=== PATIENT | male | born 1980 | race Caucasian/White ===

== ENCOUNTER 2016-12-16 20:58 | Observation (INO) | payer MEDICAID ==
[2016-12-16] MEDS ORDERED: ONDANSETRON 4 MG/2 ML VIAL ONE (21:12)
[2016-12-16] MEDS ORDERED: NS 1,000 ML IV ONE (21:15)
[2016-12-16] MEDS ORDERED: ONDANSETRON 4 MG/2 ML VIAL IVP ONE (21:15)
[2016-12-16] MEDS ORDERED: HYDROmorphONE/DILAUDID 1 MG/ML SYR IVP ONE ×3 (21:26→23:04)
[2016-12-16 21:48] LABS: % IMMATURE GRANULYOCYTES 0.2 % (0.0-1.1); ABSOLUTE IMMATURE GRANULOCYTES 0.02 10^3/uL (0.00-0.10); ADD DIFF? NO; ADD MORPH? NO; ADD SCAN? NO; ATYPICAL LYMPHOCYTE FLAG 0 (0-99); FRAGMENT RBC FLAG 0 (0-99); HEMOGLOBIN 15.9 g/dL (13.7-17.5); LEFT SHIFT FLG 0 (0-99); LIPEMIA HEMOLYSIS FLAG 90 (0-99); MEAN CELL HEMOGLOBIN 28.5 pg (27.9-34.1); MEAN CELL HEMOGLOBIN CONCENTR. 33.8 g/dL (32.4-36.7); MEAN CELL VOLUME 84.4 fL (81.5-99.8); MEAN PLATELET VOLUME 10.4 fL (8.7-11.7); PLATELET CLUMPS FLAG 0 (0-99); PLATELET COUNT 328 10^3/uL (150-400); RED BLOOD CELL COUNT 5.57 10^6/uL (4.40-6.38)
[2016-12-16 22:03] LABS: ALANINE AMINOTRANSFERASE 56 IU/L (21-72); ALBUMIN 4.3 g/dL (3.5-5.0); ALKALINE PHOSPHATASE 56 IU/L (38-126); ANION GAP 10 mEq/L (8-16); ASPARTATE AMINOTRANSFERASE 37 IU/L (17-59); BILIRUBIN,TOTAL 0.7 mg/dL (0.1-1.4); BILIRUBIN-CONJUGATED 0.4 mg/dL (0.0-0.5); BILIRUBIN-UNCONJUGATED 0.3 mg/dL (0.0-1.1); CALCIUM 9.7 mg/dL (8.5-10.4); CARBON DIOXIDE 25 mEq/l (22-31); CHLORIDE 104 mEq/L (97-110); GLOMERULAR FILTRATION RATE > 60; GLUCOSE 105 mg/dL (70-100); POTASSIUM 4.2 mEq/L (3.5-5.2); SODIUM 139 mEq/L (134-144); TOTAL PROTEIN 7.2 g/dL (6.3-8.2)
[2016-12-16] MEDS ORDERED: LORazepam 2 MG/ML INJ ONE (22:10)
[2016-12-16] MEDS ORDERED: PROMETHAZINE HCL 25 MG/ML INJ ONE (22:10)
[2016-12-16] MEDS ORDERED: PROMETHAZINE HCL 25 MG/ML INJ IVP ONE ×2 (22:17→23:04)
[2016-12-16] MEDS ORDERED: HYDROmorphONE/DILAUDID 1 MG/ML SYR ONE (22:21)
[2016-12-16 22:25] LABS: COLOR YELLOW; LEUKOCYTE ESTERASE,URINE TRACE (NEGATIVE); NITRITE,URINE NEGATIVE (NEGATIVE)
[2016-12-16 22:32] LABS: MUCUS TRACE /lpf (NONE-1+)
--- NOTE | 2016-12-16 22:46 | EDPHY ---
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 Patient reports the onset of symptoms over the last day. Symptoms have been worsening. He reports associated bloody vomiting. He states multiple episodes, too numerous to quantify. He has also had softer stools but not jose d diarrhea. He denies precipitating factors. He denies alleviating factors. He states when he usually has this problem he requires steroids to settle it down. He was followed by a cut out operator in [place] where he just moved from but does not currently have one here in [place]. Review of systems: A 10 point review of systems was obtained and other than described above was negative - Personal History Current Tetanus/Diphtheria Vaccine: Yes Current Tetanus Diphtheria and Acellular Pertussis (TDAP): Yes - Medical/Surgical History Hx Asthma: Yes Hx Chronic Respiratory Disease: No Hx Diabetes: No Hx Cardiac Disease: No Hx Renal Disease: No Hx Cirrhosis: No Hx Alcoholism: No Hx HIV/AIDS: No Hx Splenectomy or Spleen Trauma: No Other PMH: eosiniphilic gastroenteritis, hereditary, angio edema, appy, tuan - Social History Smoking Status: Current some day smoker - Physical Exam Exam: General Appearance: Alert, nontoxic. Eyes: Pupils equal and round no pallor or injection. ENT, Mouth: Mucous membranes moist. Respiratory: There are no retractions, lungs are clear to auscultation. Cardiovascular: Regular rate and rhythm. Gastrointestinal: Bowel sounds normal. Abdomen is soft, nondistended. Diffuse tenderness. Neurological: Alert and oriented. Strength and sensation intact and symmetrical. Skin: Warm and dry, no rashes. Musculoskeletal: Neck is supple non tender. Extremities are symmetrical, full range of motion. Psychiatric: Patient is oriented X 3, there is no agitation. Constitutional: Initial Vital Signs Temperature (C) 37.5 C 12/16/16 21:03 Heart Rate 115 H 12/16/16 21:03 Respiratory Rate 16 12/16/16 21:03 Blood Pressure 151/88 H 12/16/16 21:03 O2 Sat (%) 95 12/16/16 21:03 O2 Delivery Mode Room Air Allergies/Adverse Reactions: Penicillins Allergy (Verified 12/16/16 21:02) Home Medications: Medication Instructions Recorded Adderall 5 mg Tablet 12/16/16 Claritin 12/16/16 Paxil 12/16/16 Pepcid 12/16/16 Medical Decision Making ED Course/Re-evaluation: Patient is discussed with my secondary supervising physician Dr. Yossi Coulter. Patient presents to the emergency department with abdominal pain and hematemesis. Patient is nontoxic. Baseline blood studies largely unremarkable. He is symptomatically treated with minimal improvement in symptoms. I believe he will be best treated inpatient. He is admitted to Dr. Vahid Daley. On-call gastroenterology, Dr. Kristan Macias is consulted. He recommends 40 mg Solu-Medrol IV this evening. He will see patient in the morning in consultation. The plan has been discussed with the patient who voiced understanding and agreement with it. Differential Diagnosis: Eosinophilia gastroenteritis flare, upper GI bleed including Cynthia-Reynoso tear , peptic ulcer disease, biliary tract disease, pancreatitis, colitis - Data Points Laboratory Results: Laboratory Results 12/16/16 21:39 12/16/16 21:39 12/16/16 12/16/16 21:39 20:05 WBC 9.43 10^3/uL (3.80-9.50) RBC 5.57 10^6/uL (4.40-6.38) Hgb 15.9 g/dL (13.7-17.5) Hct 47.0 % (40.0-51.0) MCV 84.4 fL (81.5-99.8) MCH 28.5 pg (27.9-34.1) MCHC 33.8 g/dL (32.4-36.7) RDW 15.0 % (11.5-15.2) Plt Count 328 10^3/uL (150-400) MPV 10.4 fL (8.7-11.7) Neut % (Auto) 74.2 % (39.3-74.2) Lymph % (Auto) 14.7 L % (15.0-45.0) Ector % (Auto) 7.5 % (4.5-13.0) Eos % (Auto) 2.8 % (0.6-7.6) Baso % (Auto) 0.6 % (0.3-1.7) Nucleat RBC Rel Count 0.0 % (0.0-0.2) Absolute Neuts (auto) 6.99 H 10^3/uL (1.70-6.50) Absolute Lymphs (auto) 1.39 10^3/uL (1.00-3.00) Absolute Monos (auto) 0.71 10^3/uL (0.30-0.80) Absolute Eos (auto) 0.26 10^3/uL (0.03-0.40) Absolute Basos (auto) 0.06 10^3/uL (0.02-0.10) Absolute Nucleated RBC 0.00 10^3/uL (0-0.01) Immature Gran % 0.2 % (0.0-1.1) Immature Gran # 0.02 10^3/uL (0.00-0.10) Sodium 139 mEq/L (134-144) Potassium 4.2 mEq/L (3.5-5.2) Chloride 104 mEq/L (97-110) Carbon Dioxide 25 mEq/l (22-31) Anion Gap 10 mEq/L (8-16) BUN 10 mg/dL (7-23) Creatinine 1.0 mg/dL (0.7-1.3) Estimated GFR > 60 Glucose 105 H mg/dL (70-100) Calcium 9.7 mg/dL (8.5-10.4) Total Bilirubin 0.7 mg/dL (0.1-1.4) Conjugated Bilirubin 0.4 mg/dL (0.0-0.5) Unconjugated Bilirubin 0.3 mg/dL (0.0-1.1) AST 37 IU/L (17-59) ALT 56 IU/L (21-72) Alkaline Phosphatase 56 IU/L (38-126) Total Protein 7.2 g/dL (6.3-8.2) Albumin 4.3 g/dL (3.5-5.0) Lipase 53.0 IU/L (23-300) Urine Color YELLOW Urine Appearance CLEAR Urine pH 5.0 (5.0-7.5) Ur Specific [place] 1.011 (1.002-1.030) Urine Protein NEGATIVE (NEGATIVE) Urine Ketones TRACE H (NEGATIVE) Urine Blood NEGATIVE (NEGATIVE) Urine Nitrate NEGATIVE (NEGATIVE) Urine Bilirubin NEGATIVE (NEGATIVE) Urine Urobilinogen NEGATIVE EU (0.2-1.0) Ur Leukocyte Esterase TRACE H (NEGATIVE) Urine RBC 1-3 /hpf (0-3) Urine WBC 1-3 /hpf (0-3) Ur Epithelial Cells TRACE /lpf (NONE-1+) Urine Mucus TRACE /lpf (NONE-1+) Ur Culture Indicated? INDICATED H (NI) Urine Glucose NEGATIVE (NEGATIVE) Medications Given: Discontinued Medications Hydromorphone HCl (Dilaudid) 1 mg IVP EDNOW ONE Stop: 12/16/16 21:27 Last Admin: 12/16/16 21:48 Dose: 1 mg Hydromorphone HCl (Dilaudid) 1 mg IVP EDNOW ONE Stop: 12/16/16 22:37 Last Admin: 12/16/16 22:38 Dose: 1 mg Sodium Chloride (Ns) 1,000 mls @ 0 mls/hr IV ONCE ONE PRN Reason: Wide Open Stop: 12/16/16 21:16 Last Admin: 12/16/16 21:47 Dose: 1,000 mls Ondansetron HCl (Zofran) 4 mg IVP EDNOW ONE Stop: 12/16/16 21:16 Last Admin: 12/16/16 21:48 Dose: 4 mg Promethazine HCl (Phenergan Injection) 6.25 mg IVP ONCE ONE Stop: 12/16/16 22:18 Last Admin: 12/16/16 22:37 Dose: 6.25 mg Departure - Departure Disposition: [facility] Acute Clinical Impression: Abdominal pain Qualifiers: Abdominal location: generalized Qualifier Code: (R10.84) Generalized abdominal pain Hematemesis Qualifiers: Nausea presence: with nausea Qualifier Code: (K92.0) Hematemesis Condition: Fair
[2016-12-16] MEDS ORDERED: methylPREDNISolone SOD SUCC 40 MG/ML VIAL IVP ONE (22:49)
[2016-12-16] MEDS ORDERED: HYDROmorphONE/DILAUDID 1 MG/ML SYR IVP PRN (23:01)
[2016-12-16] MEDS ORDERED: ZOLPIDEM TARTRATE 5 MG TAB PO PRN (23:01)
[2016-12-16] MEDS ORDERED: oxyCODONE IR 5 MG TAB PO PRN (23:01)
[2016-12-16] MEDS ORDERED: PANTOPRAZOLE SODIUM 40 MG VIAL IVP ONE (23:03)
[2016-12-16] MEDS ORDERED: diphenhydrAMINE 25 MG CAP PO PRN (23:04)
[2016-12-16] MEDS ORDERED: D5W 1/2 NS W/ 20 KCl/L 1,000 ML IV SCH (23:15)
[2016-12-16] MEDS ORDERED: PANTOPRAZOLE SODIUM 40 MG VIAL ONE (23:23)
--- NOTE | 2016-12-16 23:32 | GHP ---
[f rep st] HISTORY AND PHYSICAL DATE OF ADMISSION: 12/16/2016 CHIEF COMPLAINT: Abdominal pain and hematemesis. HISTORY OF PRESENT ILLNESS: This is a 36-year-old male, who recently relocated to [place] from [facility] with history of idiopathic eosinophilic gastroenteritis and angioedema, presented to the emerg ency department today with abdominal pain. The patient states that his abdominal pain began about a day ago. It is described as a 9/10, a hot v ice, crampy pain over his right upper quadrant and left upper quadrant. The pain was better with IV pain medications that were given in the emergency department. He has had some dark stools over the p ast few days. He reports some chills, but no fever. About an hour prior to presenting to the emergency department, he had a bout of hematemesis. He feel s a little lightheaded. He denies any chest pain or shortness of breath. He denies any angioedema. PAST MEDICAL HISTORY: 1. Idiopathic eosinophilic gastroenteritis. 2. Angioedema. PAST SURGICAL HISTORY: 1. Cholecystectomy. 2. Appendectomy. MEDICATIONS: At home, Pepcid, Paxil, Claritin, and Adderall. ALLERGIES: Penicillin. SOCIAL HISTORY: The patient recently moved from [place] to [place] to be with his fiancee. He s mokes tobacco occasionally. He drinks alcohol occasionally. FAMILY HISTORY: Significant for celiac disease in a sister and grandfather with Crohn. REVIEW OF SYSTEMS: Comprehensive 10-point review of systems was done and is negative except for as m entioned in the HPI. : The patient reports urinary frequency, but no dysuria. PHYSICAL EXAM: VITAL SIGNS: Blood pressure 151/88, pulse of 115, respiratory rate 16, O2 saturation 95% on room air, temperature afebrile. GENERAL: No acute distress. HEAD: Normocephalic, atraumat ic. EYES: PERRLA. Sclerae anicteric. MOUTH: Moist mucous membranes. NECK: Supple. No lymphade nopathy. CARDIOVASCULAR: Tachycardic, S1-S2, no JVD. No lower extremity edema. PULMONARY: Lungs are clear. No wheezes, rales, or rhonchi. ABDOMEN: Soft with hypoactive bowel sounds. There is no guarding or rebound tenderness. There is some tenderness to deep palpation in the right upper quadr ant. EXTREMITIES: No clubbing or cyanosis. NEURO: Cranial nerves 2-12 grossly intact. No focal m otor or sensory deficits. SKIN: There are some abrasions over the left lower leg. There is no tong ue swelling or urticaria. LABORATORY DATA: WBC is 9.4, hemoglobin 15.9, hematocrit 47, platelets 328, sodium 139, potassium 4. 2, chloride 104, BUN 10, creatinine 1, glucose 105. LFTs unremarkable. UA trace leukocyte esterase, trace ketones. ASSESSMENT AND PLAN: This is a 36-year-old male with history of eosinophilic gastroenteritis and ang ioedema presents the hospital with abdominal pain with hematemesis, which is likely a flare of his eo sinophilic gastroenteritis versus peptic ulcer disease versus gastritis versus other. It is somewhat strange for this to be eosinophilic gastroenteritis given his relatively unremarkable eosinophil julieta l count. PLAN: At any rate, the patient will be placed on observation where we will start him on IV fluids. We will start IV PPI. We will treat his nausea and vomiting supportively with antiemetics. Will kojo at his abdominal pain with IV and p.o. narcotic pain medications. Dr. Kristan Macias from GI of the [facility] has been consulted by the emergency department who did recommend starting Solu-Medrol overnight. /[id number]/MODL
[2016-12-17] MEDS: PANTOPRAZOLE SODIUM 80 MG in NS 100 ML IV SCH ×2 (00:30→11:32)
[2016-12-17] MEDS: PROMETHAZINE HCL 25 MG/ML INJ IVP PRN ×4 (01:30→19:40)
[2016-12-17] MEDS: HYDROmorphONE/DILAUDID 1 MG/ML SYR IVP PRN ×6 (01:31→08:20)
[2016-12-17] MEDS: ONDANSETRON 4 MG/2 ML VIAL IVP PRN ×3 (03:10→15:46)
[2016-12-17 05:19] LABS: % IMMATURE GRANULYOCYTES 0.1 % (0.0-1.1); ABSOLUTE IMMATURE GRANULOCYTES 0.01 10^3/uL (0.00-0.10); ADD DIFF? NO; ADD MORPH? NO; ADD SCAN? NO; ATYPICAL LYMPHOCYTE FLAG 0 (0-99); FRAGMENT RBC FLAG 0 (0-99); HEMATOCRIT 45.4 % (40.0-51.0); LEFT SHIFT FLG 0 (0-99); LIPEMIA HEMOLYSIS FLAG 80 (0-99); MEAN CELL HEMOGLOBIN 28.2 pg (27.9-34.1); MEAN CELL VOLUME 85.3 fL (81.5-99.8); MEAN PLATELET VOLUME 10.2 fL (8.7-11.7); PLATELET CLUMPS FLAG 0 (0-99); PLATELET COUNT 273 10^3/uL (150-400); RED BLOOD CELL COUNT 5.32 10^6/uL (4.40-6.38); RED CELL DISTRIBUTION WIDTH 15.2 % (11.5-15.2)
[2016-12-17 05:45] LABS: INR 0.99 (0.83-1.16)
[2016-12-17 05:46] LABS: APTT 28.6 SEC (23.0-38.0)
[2016-12-17 05:53] LABS: ANION GAP 10 mEq/L (8-16); CALCIUM 9.1 mg/dL (8.5-10.4); CARBON DIOXIDE 23 mEq/l (22-31); CHLORIDE 106 mEq/L (97-110); CREATININE 0.9 mg/dL (0.7-1.3); GLOMERULAR FILTRATION RATE > 60; GLUCOSE 131 mg/dL (70-100); POTASSIUM 5.3 mEq/L (3.5-5.2); SODIUM 139 mEq/L (134-144)
[2016-12-17] MEDS ORDERED: methylPREDNISolone SOD SUCC 40 MG/ML VIAL IVP SCH (06:00)
[2016-12-17] MEDS ORDERED: D5W 1/2 NS 1,000 ML IV SCH (06:30)
[2016-12-17] MEDS ORDERED: HYDROmorphONE/DILAUDID 1 MG/ML SYR IVP PRN ×2 (08:08→12:45)
--- NOTE | 2016-12-17 08:27 | PDCONSULT ---
Safety Grooving Machine Operator Note: Overall Highly suspicious of drug seeking behavior. But, to give patient the benefit of the doubt, will request records. Patient identified [facility] as the last place he received care. I have asked wardrobe supervisor to request records from: 1. Dr. Mir Joseph, phone [phone] 2. [facility], phone [phone], fax [phone] 3. [facility], phone [phone]
--- NOTE | 2016-12-17 09:09 | GHP ---
[f rep st] PREOP HISTORY AND PHYSICAL DATE OF ADMISSION: 12/16/2016 REASON FOR CONSULTATION: Abdominal pain. CHIEF COMPLAINT: Abdominal pain. HISTORY OF PRESENT ILLNESS: Briefly, The patient is a 36-year-old male who presents to the emergency room on 12/16/2016 for the evaluation of abdominal pain. He reports he was in his usual state of health until approximately 2 days ago when he began to have epigastric abdominal pain associated with nausea , vomiting, and diarrhea. He describes having several episodes of large volume hematemesis as well. He describes it as 9/10. He reports a vice-like cramping discomfort. He reports that it was somewhat better with IV pain therapies. He also reports some darker than normal bowel habits. He was also reporting some lightheadedness and chest pain. Of note, he reports 2 very unusual diagnoses idiopathic eosinophilic gastroenteritis, as well as hereditary angioedema. He describes a long and protracted workup done at an outside hospital in [place] to arrive at these diagnoses. He describes having been given short courses of steroids for treatment of both problems. He reports that he typically will have long periods wellness, punctuated by periods of cramping abdominal discomfort, etc. PAST MEDICAL HISTORY: 1. Idiopathic eosinophilic gastroenteritis-possible. 2. Angioedema-possible. PAST SURGICAL HISTORY: Includes cholecystectomy and appendectomy. ALLERGIES: Penicillin. HOME MEDICINES: Include Pepcid, Paxil, Claritin, Adderall, and swallowed corticosteroid. SOCIAL HISTORY: He recently moved to [place] from [place]. He reports he smokes tobacco periodically. He drinks alcohol occasionally, but he does not use drugs. FAMILY HISTORY: Significant for celiac disease and a grandfather with Crohn disease. REVIEW OF SYSTEMS: A comprehensive 10-point review of systems was undertaken and is negative, except for those details described in the history of present illness. PHYSICAL EXAM: This is a well-developed male, in no apparent distress. His pupils are equal, round, and reactive to light and accommodation. Sclerae are nonicteric. His oropharynx is clear. NECK: Supple without lymphadenopathy. HEART: Regular without murmur. ABDOMEN: Soft, nontender, with normoactive bowel sounds. EXTREMITIES: Free of cyanosis, clubbing, edema. NEURO EXAM: Grossly nonfocal. LABORATORY TESTING: Shows a white count of 7.8, hemoglobin of 15.0, hematocrit 45.4, platelet count of 278. Eosinophil count is normal. INR of 0.99. Sodium of 139, potassium of 5.3, chloride of 106, bicarb of 23, BUN of 10, creatinine of 0.9. Liver tests, lipase and albumin were normal. Urinalysis was normal. IMPRESSION AND RECOMMENDATIONS: The patient reports acute onset of abdominal pain, nausea, vomiting, diarrhea, and hematemesis approximately 24-48 hours prior to admission. He reports this is typical of his prior diagnoses of hereditary angioedema and idiopathic eosinophilic gastroenteritis. Overall, I am suspicious for a narcotic-seeking presentation. But, in order to give the patient the benefit of the doubt, we will request his prior records. He describes having had a prior extensive workup in [place], [place]. He describes having upper endoscopies, surgeries, colonoscopies, biopsies, imaging , laboratory testing, etc. He describes rapid resolution of his symptoms with IV Solu-Medrol and p.o. prednisone. Again, given the patient benefit of the doubt, in the setting of his active symptoms, we will continue a regimen of steroid therapies. Should we learned that he in fact does not have these diagnosis, we can arrange a cessation of these therapies given their short duration of use so far. I recommend, otherwise, that we continue supportive care with antiemetic therapy , pain therapies as needed, IV fluids, etc. Given the report of hematemesis, which is atypical of hereditary angioedema, or eosinophilic gastroenteritis, I recommend he undergo upper endoscopy. It is possible that he has developed a Cynthia-Reynoso tear, peptic ulcer, or alternate etiology for bleeding. This will give us another opportunity to repeat biopsy of his small intestine, stomach, esophagus or to evaluate for the possibility of eosinophilia. Eosinophilic gastroenteritis, typically, was biopsied with full-thickness biopsies. Superficial biopsies can be falsely negative. I am hopeful that with review of his outside record, we will be able to sort this out. /[id number]/MODL MTDD
[2016-12-17] MEDS ORDERED: PROPOFOL/EMULSION 500 MG/50 ML BOTTLE IV ONE (09:29)
[2016-12-17] MEDS ORDERED: MIDAZOLAM 2 MG/2 ML VIAL ONE (09:29)
[2016-12-17] MEDS ORDERED: PROPOFOL 200 MG/20 ML VIAL ONE (09:48)
[2016-12-17] MEDS ORDERED: fentaNYL 100 MCG/2 ML INJ ONE ×2 (09:50→11:00)
--- NOTE | 2016-12-17 10:07 | SUROPNOTE ---
[facility] Operative Report - Surgery BRIEF ENDO NOTE EGD Indication: hematemesis Complications: none acutely Meds: per anesthesia Findings: 1. normal mid esophagus - bx'd 2. Irregular Z-line at [place]- bx'd 3. Mild-Moderate gastritis - bx'd 4. Dudoenal bulb erosion with minimal oozing - bx'd 5. Normal duodenum otherwise - bx'd IMPRESSION/RECS: 1. Hematemesis - possible from minimal duodenal erosive disease? 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 Abd Pain/Eosinophilia/Angioedema - reports Eosinophilic esophagitis AND hereditary angioedema? - records requests to [facility] underway - continue supportive care - received IV steroids from ED - ok to change to 40mg pred po qd, until records received - somewhat doubtful of diagnoses, but await records to confirm - will see what EGD bx show as well
--- NOTE | 2016-12-17 10:09 | GPN ---
[f rep st] PROCEDURE NOTE PROCEDURE: Upper endoscopy. INDICATIONS: Hematemesis, nausea, vomiting. COMPLICATIONS: None acutely. MEDICATIONS: General anesthesia was administered by our anesthesia colleagues. This was deemed necessary due to the patient's prior poor tolerance of conscious sedation and high current narcotic needs. DESCRIPTION OF PROCEDURE: After informed consent was obtained, the patient was left in the supine position. The forward viewing upper endoscope was advanced through the mouth into the proximal duodenum. Retroflex views in the gastric cardia were obtained. FINDINGS: 1. Mid esophagus appeared normal, biopsies were obtained. 2. Distal esophagus: There was irregular Z-line, biopsies were obtained to rule out Orta's esophagus. 3. There was mild to moderate gastritis throughout the entire stomach, biopsies were obtained to rule out H pylori. 4. There was some minimal erosion and oozing in the proximal duodenum-bulb, biopsies were obtained. (scope trauma?) 5. The remaining duodenum appeared normal, biopsies were obtained. IMPRESSION/RECOMMENDATIONS: Overall no source of clinically significant bleeding was noted. The patient did have some erosive duodenitis with mild oozing, which could explain some small volume hematemesis (although may also be a consequence of scope trauma). There were no ulcers, cancers, etc. Given the patient's reported history of idiopathic eosinophilic gastroenteritis , biopsies of the esophagus, stomach, and duodenum were done in addition to the biopsies of irregular Z-line and duodenal bulb erosion. I recommend the patient advance his diet, he should remain on a proton pump inhibitor therapy, and we will follow his abdominal symptoms. We await outside records related to his diagnosis of eosinophilic gastroenteritis. We can determine subsequent care based on that. /[id number]/MODL MTDD
[2016-12-17] MEDS ORDERED: HYDROmorphONE/DILAUDID 1 MG/ML SYR ONE (11:00)
[2016-12-17] MEDS ORDERED: NON-FORMULARY NEW DRUG (Loratadine [Claritin 10 Mg] 10 MG) PO SCH (12:30)
[2016-12-17] MEDS: ADDERALL 20 MG TAB PO SCH (13:52)
[2016-12-17] MEDS: PARoxetine HCL 20 MG TAB PO SCH (13:53)
[2016-12-17] MEDS: FAMOTIDINE 20 MG TAB PO SCH (13:53)
[2016-12-17] MEDS: oxyCODONE IR 5 MG TAB PO PRN ×2 (14:46→20:39)
--- NOTE | 2016-12-17 15:01 | HOSPPROG ---
Hospitalist Progress Note Assessment/Plan: Hematemesis - EGD showed minimal oozing of duodenum, possible source. No hematemesis witnessed here per RN. H&H stable. Continue to monitor. Epigastric pain, N/V - EGD showed mild to moderate gastritis. H pylori Ab positive. Will start triple therapy with PPI, Clarithromycin and Flagyl (PCN allergy). Continue supportive care, IVF's, anti-emetics. Pt tolerating po today, will d/c IV dilaudid, minimize opiates. H/O eosinophilic esophagitis - obtaining records from [place] to confirm diagnosis. Normal eos on cbc here. Change to oral Prednisone tomorrow. H/O angioedema - no symptoms here. Full code DVT PPLX- Subjective: Pt still c/o pain today. Reports hematemesis this am, but RN did not confirm this. No fevers. No vomiting. He is tolerating clears since EGD. Objective: Vital Signs Temp Pulse Resp BP Pulse Ox 36.9 C 105 H 20 103/68 94 12/17/16 12:06 12/17/16 12:06 12/17/16 12:06 12/17/16 12:06 12/17/16 12:06 Laboratory Results 12/17/16 05:09 12/17/16 05:09 12/16/16 12/17/16 12/18/16 05:59 05:59 05:59 Intake Total 1000 400 Output Total 0 Balance 1000 400 PT 13.0 SEC (12.0-15.0) 12/17/16 05:09 INR 0.99 (0.83-1.16) 12/17/16 05:09 - Physical Exam Constitutional: no apparent distress Eyes: PERRL Ears, Nose, Mouth, Throat: moist mucous membranes Cardiovascular: regular rate and rhythym Respiratory: no respiratory distress, clear to auscultation Gastrointestinal: normoactive bowel sounds, other (+TTP epigastrium, no r/r/g) Skin: warm Neurologic: AAOx3 Psychiatric: interacting appropriately ICD10 Worksheet Patient Problems: Problems Problem Status Diagnosed Abdominal pain Acute Hematemesis Acute
[2016-12-17] MEDS: metroNIDAZOLE 500 MG TAB PO SCH ×2 (15:49→20:39)
[2016-12-17] MEDS: CLARITHROMYCIN 500 MG TAB PO SCH ×2 (15:50→20:40)
[2016-12-17] MEDS ORDERED: PANTOPRAZOLE SODIUM 40 MG in NS 100 ML IV SCH (21:00)
[2016-12-18] MEDS: PROMETHAZINE HCL 25 MG/ML INJ IVP PRN ×2 (04:10→10:34)
[2016-12-18] MEDS: oxyCODONE IR 5 MG TAB PO PRN ×2 (04:49→10:54)
[2016-12-18 05:51] LABS: ANION GAP 8 mEq/L (8-16); CALCIUM 8.2 mg/dL (8.5-10.4); CARBON DIOXIDE 27 mEq/l (22-31); CHLORIDE 104 mEq/L (97-110); CREATININE 0.9 mg/dL (0.7-1.3); GLOMERULAR FILTRATION RATE > 60; GLUCOSE 115 mg/dL (70-100); POTASSIUM 3.8 mEq/L (3.5-5.2); SODIUM 139 mEq/L (134-144)
[2016-12-18 07:58] VITALS: BP 117/80; PULSE 90; RESP 16; TEMP 98.2; O2SAT 92
[2016-12-18] MEDS ORDERED: PANTOPRAZOLE SODIUM 40 MG TAB PO SCH (09:00)
[2016-12-18] MEDS ORDERED: predniSONE 20 MG TAB PO SCH (09:00)
[2016-12-18] MEDS ORDERED: CETIRIZINE 10 MG TAB PO SCH (09:00)
--- NOTE | 2016-12-18 09:55 | PDDCSUM ---
Discharge Summary Discharge Summary: Date of Admission: 12/16/2016 Date of Discharge: 12/18/2016 Discharge diagnoses: 1. Hematemesis, reported, not witnessed. Resolved. 2. Gastritis 3. H pylori Ab positive Consultants: 1. Dr. Kristan Macias, Gastroenterology History: For details, please see dictated H&P dated 12/16/2016. In brief, Mr. Muñoz is a 36 yo male with h/o gastritis and reported diagnosis of eosinophilic esophagitis presents to ED with hematemesis and epigastric pain. He was admitted for further evaluation. Hospital course: He was admitted to med surg. Given his reported his eosinophilic esophagitis, he was given IV steroids on admission. He was started on PPI drip and GI was consulted. He had no witnessed hematemesis here and his hgb remained stable at 15. He underwent EGD which showed a normal esophagus, mild to moderate gastritis and a duodenal bulb erosion with minimal oozing. Biopsies are pending. His H Pylori Ab was positive and he was started on triple therapy. Records from OSH were reviewed and there was not pathology diagnosis of eosinophilic esophagitis thus steroids are discontinued as they may cause more harm than benefit in the setting of gastritis. He is discharged on triple therapy for H Pylori. GI of [facility] will contact him for f/u. He is tolerating a diet with improvement in symptoms on the day of discharge. Discharge medications: New Rx's: Protonix 40 mg po BID, Clarithromycin 500 mg BID x1 week, Flagyl 500 mg po BID x1 week (PCN allergic), Zofran 4 mg q6h prn. Continue other outpt medications as prescribed. Please see [facility] for complete updated medication list. Follow up: 1. PCP 2. GI of [facility].
[2016-12-18] MEDS: ADDERALL 20 MG TAB PO SCH (10:54)
[2016-12-18] MEDS: metroNIDAZOLE 500 MG TAB PO SCH (10:54)
[2016-12-18] MEDS: FAMOTIDINE 20 MG TAB PO SCH (10:54)
[2016-12-18] MEDS: CLARITHROMYCIN 500 MG TAB PO SCH (10:55)
[2016-12-18] MEDS: PARoxetine HCL 20 MG TAB PO SCH (10:55)
== END 2016-12-18 13:15 | disposition home or self-care (01) ==
LOC: INTOOBSV 22:50 → F3E 23:57
PROVIDERS: ADMIT Family Medicine; ATTEND Hospitalist
PROC: 0DB28ZX Excision of Middle Esophagus, Via Natural or Artificial Opening Endoscopic, Diagnostic (ICD-10-PCS; principal; 2016-12-16)
PROC: 0DB38ZX Excision of Lower Esophagus, Via Natural or Artificial Opening Endoscopic, Diagnostic (ICD-10-PCS; principal; 2016-12-16)
PROC: 0DB98ZX Excision of Duodenum, Via Natural or Artificial Opening Endoscopic, Diagnostic (ICD-10-PCS; principal; 2016-12-16)
PROC: 0DB68ZX Excision of Stomach, Via Natural or Artificial Opening Endoscopic, Diagnostic (ICD-10-PCS; principal; 2016-12-16)
DX: K29.70 Gastritis, unspecified, without bleeding (principal); B96.81 Helicobacter pylori [H. pylori] as the cause of diseases classified elsewhere; K92.0 Hematemesis
CPT/HCPCS: 96374; G0378; J1170; J1200; J2250; J2405; J2550; J2704; J3010

== ENCOUNTER 2017-01-13 11:30 | Inpatient (IN) | payer MEDICAID ==
[2017-01-13] MEDS ORDERED: fentaNYL 100 MCG/2 ML INJ IVP ONE (11:44)
[2017-01-13] MEDS ORDERED: NS 1,000 ML IV ONE (11:44)
[2017-01-13] MEDS ORDERED: PANTOPRAZOLE SODIUM 80 MG in NS 100 ML IV ONE ×2 (11:44→11:45)
[2017-01-13] MEDS ORDERED: ONDANSETRON 4 MG/2 ML VIAL IVP ONE ×2 (11:44→13:21)
--- NOTE | 2017-01-13 12:03 | EDPHY ---
H & P Stated Complaint: vomitting blood Source: Patient, Old records Exam Limitations: No limitations - Personal History Current Tetanus/Diphtheria Vaccine: Unsure Current Tetanus Diphtheria and Acellular Pertussis (TDAP): Unsure - Medical/Surgical History Hx Asthma: Yes Hx Chronic Respiratory Disease: No Hx Diabetes: No Hx Cardiac Disease: No Hx Renal Disease: No Hx Cirrhosis: No Hx Alcoholism: No Hx HIV/AIDS: No Hx Splenectomy or Spleen Trauma: No Other PMH: eosiniphilic gastroenteritis, hereditary, angio edema, appy, tuan - Social History Smoking Status: Current some day smoker HPI/ROS: CHIEF COMPLAINT: Vomiting blood, diarrhea HISTORY OF PRESENT ILLNESS: 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 He says over the past 2 days he has had some diarrhea that was dark and tarry. He said this morning he started vomiting blood. This was bright red blood. He notes that he could have filled 1/3 of the white plastic cup that he is vomiting into this morning. At this time he is only vomiting scant amount. No chest pain or shortness of breath. He does have a moderate to severe abdominal pain with this. No fever or chills. He was seen at his specifications writer office earlier today by the PA, who sent him to the emergency department. He reports that he had an upper GI done 3 weeks ago, and was placed on a Prevpac last week. He has had diarrhea on and off for the past 2 days from this. No bright red blood in the stools. He has not had a colonoscopy at. The abdominal pain is moderate to severe. Also notes a diagnosis of hereditary angioedema. He has no swelling of the mouth, lips or tongue. No difficulty swallowing. No shortness of breath. Worse with vomiting and palpation. Minimal improvement at rest. No other associated complaints or modifying factors. REVIEW OF SYSTEMS: Ten systems reviewed and are negative unless otherwise noted in the HPI EXAMINATION General Appearance: Alert, no distress , vomiting Head: normocephalic, atraumatic Eyes: Pupils equal and round, no conjunctival pallor or injection ENT, Mouth: Mucous membranes moist. No edema of the lips, tongue or posterior pharynx. The airway is patent. No erythema or lesions of the oropharynx. Neck: Normal inspection, supple, non-tender Respiratory: Lungs are clear to auscultation . No wheezing, rhonchi or crackles. Cardiovascular: Regular rate and rhythm . No murmur. Pulses are intact distally. Symmetric radial, DP, PT pulses all 2+ Gastrointestinal: Abdomen is soft. Generalized tenderness out of a portion to examination. No tympany or rigidity. No CVA tenderness. Back: non-tender, no bony abnormalities Neurological: A&O, nonfocal, normal gait . Strength is symmetric in all limbs. Skin: Warm and dry, no rash . No petechiae or purpura. Extremities: Nontender, no pedal edema Psychiatric: Mood and affect normal DIFFERENTIAL DIAGNOSES: Including but not limited to Upper GI bleed, gastritis, esophagitis, duodenitis, enteritis, colitis, ischemic bowel MDM: 11:45 a.m. hematemesis with dark stools with recent diarrhea. He was placed on a Prevpac last week. his abdominal pain is out of proportion to examination also order CT scan of the abdomen and pelvis. Vital signs were well within normal limits. I have ordered Protonix bolus and drip. 12:00 p.m. Case discussed with Isela Ovalles PA-C. She informed me that the patient will likely benefit from endoscopy, but she also informed me that he does have a history of hereditary angioedema is there may be an ischemic component to this. Due to this I will order CT scan of the abdomen and pelvis. I have already ordered a lactic acid upon initial evaluation. Laboratory studies are being drawn at this time. He remains hemodynamically stable. 2:30 p.m. notified by radiologist Dr. Colindres that the CT scan of the abdomen and pelvis angio has no acute findings for thrombus arterial or venous. There is no ischemic bowel. There are incidental note of renal calculi that are small, 1-2 mm. No hydronephrosis. No other acute findings. We are currently awaiting return phone call from specifications writer for consult and will proceed with admission. 2:50 p.m. I discussed the case with Dr. Hays, he will admit the patient to the floor. I am still awaiting phone call from Gastroenterology for consultation. The patient is awake and alert, normotensive, he is not actively vomiting at this time. I do feel he is stable for the floor. He does have bilateral 18 gauge IVs 3:03 p.m. I have discussed the case with on-call specifications writer Dr. Maddox. he will come see the patient here in the emergency department or when he arrives to his room upstairs. No further orders at this time. SUPERVISION: Patient was evaluated in conjunction with the supervising physician. Please see their note for details. (Montrell Hutchison) Constitutional: Initial Vital Signs Temperature (C) 98.1 F 01/13/17 11:34 Heart Rate 90 01/13/17 11:34 Respiratory Rate 16 01/13/17 11:34 Blood Pressure 137/84 H 01/13/17 11:34 O2 Sat (%) 95 01/13/17 11:34 O2 Delivery Mode Room Air Allergies/Adverse Reactions: Penicillins Allergy (Verified 12/16/16 21:02) Home Medications: Medication Instructions Recorded Amphet Asp and D/Amphet [Adderall 20 mg PO BID@0900,1230 12/16/16 20 mg (*)] Famotidine [Pepcid 20 MG (*)] 20 mg PO DAILY 12/16/16 Loratadine [Claritin 10 mg] 10 mg PO DAILY 12/16/16 PARoxetine HCL [Paxil 20mg (*)] 20 mg PO DAILY 12/16/16 Multivitamins [Multivitamin (*)] 1 each PO DAILY 12/17/16 Albuterol [Proventil Inhaler HFA 1 - 2 puffs IH Q4H PRN 01/13/17 (*)] Ondansetron Odt [Zofran Odt 4 mg 4 mg PO Q4 PRN 01/13/17 (*)] Pantoprazole Sodium [Protonix 40mg 40 mg PO DAILY 01/13/17 (*)] Sucralfate [Carafate Oral Liquid] 10 ml PO ACHS PRN 01/13/17 Medical Decision Making Other Provider: I did evaluate this patient. He is actively vomiting red blood. Small amounts. He is able to talk. Vital signs are stable. I agree with admission and GI treatment. (Rufino Dawn) - Data Points Laboratory Results: Laboratory Results 01/13/17 12:03 01/13/17 12:45 Microbiology Results: MICROBIOLOGY 01/13/17 13:04 Stool Gastrointestinal Tract Panel (PCR) - Final No Organism Detected Medications Given: Discontinued Medications Diphenhydramine HCl (Benadryl Injection) 25 mg IVP EDNOW ONE Stop: 01/13/17 13:22 Last Admin: 01/13/17 13:40 Dose: 25 mg Diphenhydramine HCl (Benadryl Injection) 25 mg IVP EDNOW ONE Stop: 01/13/17 14:01 Last Admin: 01/13/17 14:05 Dose: 25 mg Fentanyl (Sublimaze) 100 mcg IVP EDNOW ONE Stop: 01/13/17 11:45 Last Admin: 01/13/17 12:21 Dose: 100 mcg Hydromorphone HCl (Dilaudid) 1 mg IVP EDNOW ONE Stop: 01/13/17 12:50 Last Admin: 01/13/17 13:06 Dose: 1 mg Hydromorphone HCl (Dilaudid) 1 mg IVP EDNOW ONE Stop: 01/13/17 14:28 Last Admin: 01/13/17 14:32 Dose: 1 mg Hydroxyzine HCl (Hydroxyzine Hcl) 50 mg PO ONCE ONE Stop: 01/13/17 20:58 Last Admin: 01/13/17 21:11 Dose: 50 mg Sodium Chloride (Ns) 1,000 mls @ 0 mls/hr IV ONCE ONE PRN Reason: Wide Open Stop: 01/13/17 11:45 Last Admin: 01/13/17 12:22 Dose: 1,000 mls Pantoprazole Sodium 80 mg/ (Sodium Chloride) 100 mls @ 10 mls/hr IV EDNOW ONE Stop: 01/13/17 21:43 Last Admin: 01/13/17 13:40 Dose: 100 mls Pantoprazole Sodium 80 mg/ (Sodium Chloride) 100 mls @ 200 mls/hr IV EDNOW ONE Stop: 01/13/17 12:14 Last Admin: 01/13/17 12:50 Dose: 100 mls Pantoprazole Sodium 80 mg/ (Sodium Chloride) 100 mls @ 10 mls/hr IV Q10H ORALIA Stop: 07/12/17 15:29 Last Admin: 01/13/17 17:29 Dose: Not Given C1 Esterase Inhibitor (Human) 1,800 unit/ Miscellaneous Information 36 mls @ 216 mls/hr IVP ONCE ONE Stop: 01/13/17 16:39 Last Admin: 01/13/17 16:57 Dose: 36 mls Ondansetron HCl (Zofran) 8 mg IVP EDNOW ONE Stop: 01/13/17 11:45 Last Admin: 01/13/17 12:22 Dose: 8 mg Ondansetron HCl (Zofran) 4 mg IVP EDNOW ONE Stop: 01/13/17 13:22 Last Admin: 01/13/17 13:40 Dose: 4 mg Polyethylene Glycol/Electrolytes (Golytely) 4,000 ml PO ONCE ONE Stop: 01/13/17 16:26 Last Admin: 01/13/17 17:39 Dose: 4,000 ml Departure - Departure Disposition: [facility] Inpatient Acute Clinical Impression: Hematemesis Qualifiers: Nausea presence: with nausea Qualified Code(s): K92.0 - Hematemesis Condition: Fair
[2017-01-13 12:17] LABS: % IMMATURE GRANULYOCYTES 0.2 % (0.0-1.1); ABSOLUTE IMMATURE GRANULOCYTES 0.01 10^3/uL (0.00-0.10); ADD DIFF? NO; ADD MORPH? NO; ADD SCAN? NO; ATYPICAL LYMPHOCYTE FLAG 0 (0-99); FRAGMENT RBC FLAG 0 (0-99); HEMATOCRIT 46.1 % (40.0-51.0); HEMOGLOBIN 15.6 g/dL (13.7-17.5); LEFT SHIFT FLG 0 (0-99); LIPEMIA HEMOLYSIS FLAG 90 (0-99); MEAN CELL HEMOGLOBIN 28.3 pg (27.9-34.1); MEAN CELL HEMOGLOBIN CONCENTR. 33.8 g/dL (32.4-36.7); MEAN CELL VOLUME 83.5 fL (81.5-99.8); PLATELET CLUMPS FLAG 0 (0-99); PLATELET COUNT 293 10^3/uL (150-400); RED BLOOD CELL COUNT 5.52 10^6/uL (4.40-6.38); RED CELL DISTRIBUTION WIDTH 14.9 % (11.5-15.2)
[2017-01-13 12:23] LABS: INR 1.01 (0.83-1.16); PROTIME(PATIENT) 13.2 SEC (12.0-15.0)
[2017-01-13 12:24] LABS: APTT 26.6 SEC (23.0-38.0)
[2017-01-13] MEDS ORDERED: HYDROmorphONE/DILAUDID 1 MG/ML SYR IVP ONE ×2 (12:49→14:27)
[2017-01-13 13:10] LABS: ALANINE AMINOTRANSFERASE 60 IU/L (21-72); ALBUMIN 4.1 g/dL (3.5-5.0); ALKALINE PHOSPHATASE 49 IU/L (38-126); ANION GAP 12 mEq/L (8-16); ASPARTATE AMINOTRANSFERASE 41 IU/L (17-59); BILIRUBIN,TOTAL 1.2 mg/dL (0.1-1.4); BILIRUBIN-CONJUGATED 0.3 mg/dL (0.0-0.5); BILIRUBIN-UNCONJUGATED 0.9 mg/dL (0.0-1.1); CALCIUM 9.2 mg/dL (8.5-10.4); CARBON DIOXIDE 24 mEq/l (22-31); CHLORIDE 106 mEq/L (97-110); CREATININE 0.8 mg/dL (0.7-1.3); GLOMERULAR FILTRATION RATE > 60; GLUCOSE 96 mg/dL (70-100); POTASSIUM 4.4 mEq/L (3.5-5.2); SODIUM 142 mEq/L (134-144); TOTAL PROTEIN 7.1 g/dL (6.3-8.2)
[2017-01-13] MEDS ORDERED: IOPAMIDOL (ISOVUE 370) 100 ML BTL IV ONE (13:21)
[2017-01-13] MEDS ORDERED: HYDROmorphONE/DILAUDID 1 MG/ML SYR ONE (14:27)
[2017-01-13] MEDS ORDERED: PANTOPRAZOLE SODIUM 80 MG in NS 100 ML IV SCH (15:30)
[2017-01-13] MEDS ORDERED: NS 1,000 ML IV SCH (15:30)
--- NOTE | 2017-01-13 15:43 | GHP ---
[f rep st] HISTORY AND PHYSICAL DATE OF ADMISSION: 01/13/2017 The patient is a pleasant 36-year-old gentleman, with a history of recent gastroenteritis. /[id number]/MODL
[2017-01-13] MEDS: PROMETHAZINE HCL 25 MG/ML INJ IVP PRN ×2 (15:49→22:01)
[2017-01-13] MEDS ORDERED: ALBUTEROL 60 PUFFS/8 GM MDI IH PRN (16:20)
[2017-01-13] MEDS ORDERED: ONDANSETRON DISINTEGRATING 4 MG TAB PO PRN (16:20)
[2017-01-13] MEDS ORDERED: SUCRALFATE 100 MG/ML UDSYR PO PRN (16:20)
[2017-01-13] MEDS ORDERED: GOLYTELY 4000 ML BTL PO ONE (16:25)
[2017-01-13] MEDS ORDERED: C1 ESTERASE INHIBITOR IVP ONE (16:30)
--- NOTE | 2017-01-13 16:43 | GHP ---
[f rep st] HISTORY AND PHYSICAL DATE OF ADMISSION: 01/13/2017 HISTORY OF PRESENTING ILLNESS: The patient is a 36-year-old gentleman with history of eosinophilic gastritis as well as hereditary angioedema, recent Prevpac treatment, who presents with a couple of days of black, tarry stools and then some hematemesis that started this morning. He has not had ort hostatic or presyncopal symptoms. He does not have known liver disease. He does not take NSAIDs. Rare alcohol. Smokes about a few cigarettes a month, when he drinks alcohol. He has some abdominal pain. He has had some episodes of bleeding prior, but no significant. He describes his abdominal pain as coming and going, waxing and waning, sharp, vice-like. When I speak with the patient, he is animate d, alert and comfortable. REVIEW OF SYSTEMS: Complete 10-point review of systems conducted, negative except as noted in the H PI. PAST MEDICAL HISTORY: 1. Eosinophilic gastritis, diagnosed by biopsy. 2. Hereditary angioedema. 3. Status post appendectomy. 4. Status post cholecystectomy. 5. History of peripheral eosinophilia. 6. Recent treated with Prevpac, although it is not clear that he was H pylori positive. 7. Depression. 8. ADHD. ALLERGIES: Penicillin. HOME MEDICATIONS: 1. Metronidazole. 2. Carafate. 3. Pantoprazole b.i.d. 4. Paroxetine. 5. Ondansetron. 6. Multivitamin. 7. Loratadine. 8. Famotidine. 9. Clarithromycin. 10. Adderall. FAMILY HISTORY: Notable for a sister with celiac and a grandmother with Crohn's. PHYSICAL EXAM: VITAL SIGNS: Temp 36.7, blood pressure 137/84, pulse 90, breathing 16 times a minut e, 95% on room air. GENERAL: In no acute distress. HEENT: Sclerae anicteric. Oropharynx clear. Mucous membranes moist. NECK. Supple without lymphadenopathy or JVD. LUNGS: Clear to auscultati on bilaterally. HEART: S1, S2. Not tachycardic. ABDOMEN: Soft. Bowel sounds are hyperactive. There is some diffuse tenderness but no rebound or guarding. LOWER EXTREMITIES: Without edema. Ca lves are nontender. SKIN: Without rash. There is a 1 L light cup with some dark red blood in it n ext to him. LABS: White count 6, hematocrit 46.1, hemoglobin 15.6, platelets are 293. Coags are normal. Venou s lactate is 1.1. Sodium 142, potassium 4.4, chloride 106, bicarb 24, BUN 15, creatinine 0.8. LFTs normal. Lipase 84. Abdominal CT, CTA shows no evidence arterial venous thrombosis or stenosis. Status post cholecystec breanna and appendectomy. Possibly early developing renal calcinosis. Normal visceral organs otherwis e. I reviewed in partially interpreted the images myself. I have discussed the case with Bart Hutchison of the emergency department. ASSESSMENT/PLAN: This is a 36-year-old man with nausea, vomiting, with hematemesis consist with upp er gastrointestinal bleed. 1. Upper gastrointestinal bleed. May be secondary to eosinophilic gastritis. His CTA was unremark able for apparent angioedema, and it is not behaving as if it is obstructed. I do not suspect liver disease. He received proton pump inhibitor bolus in the emergency department. I will continue thi s. I think he does not need octreotide. We will cycle hematocrits q.6 hours and then daily in the morning. GI has been consulted and will see him for endoscopy. The patient is currently hemodynami denise stable. 2. History of eosinophilic gastritis. We will follow. 3. Hereditary angioedema. I see no evidence of flare at this time. 4. Prophylaxis: Pharmacologic prophylaxis is contraindicated. 5. Depression. We will continue his medications and they have been reconciled. 6. Disposition: Inpatient status. /[id number]/MODL
--- NOTE | 2017-01-13 17:13 | GCON ---
[f rep st] CONSULTATION DATE OF CONSULTATION: 01/13/2017 REFERRING PHYSICIAN: Shubham Hays MD Dear Dr. Hays: Thank you very kindly for asking me to consult on this patient for a chief complaint of hematemesis. HISTORY OF PRESENT ILLNESS: He is a pleasant 36-year-old gentleman, recently moved from [facility] o be with his significant other, who developed an abrupt onset of periumbilical abdominal pain, naus ea, and several episodes of larger bright red hematemesis that began earlier this morning. He has a lso had some hematochezia, describing a maroon discharge with some clot. His initial hematocrit in the emergency room was 46.1 with a normal INR. His BUN is 15. Interestingly, the patient has an un derlying history of hereditary angioedema which was diagnosed about 3 years ago. He at one point wa s on a C1 esterase inhibitor supplement, but this was gradually tapered and discontinued as his el cks were quite infrequent. He also has an underlying diagnosis of eosinophilic enteritis, which amy nds like it was diagnosed about 5 or 8 years ago on a colonoscopy with biopsy. He has had a recent upper endoscopy last month for a similar presentation of hematemesis which revealed features consist ent with eosinophilic esophagitis and diffuse gastritis, which was biopsy positive for H pylori whic h has recently been treated. The patient continues to complain of significant periumbilical pain. Interestingly, he also has other features of a classic hereditary angioedema presentation, which inc ludes lip swelling, itching, hives, and swelling in his hands and feet. He says this feels very typ ical to an attack of his angioedema. He is being admitted for further evaluation and management of these problems, and I am asked to consult on this issue. PAST MEDICAL HISTORY: Significant for: 1. Hereditary angioedema. 2. Eosinophilic enteritis. 3. Recent diagnosis of eosinophilic esophagitis. 4. Previous upper GI bleed, thought probably related to H pylori related to erosive gastritis. PAST SURGICAL HISTORY: Appendectomy and cholecystectomy. He says both of these were performed for abdominal pain earlier in his life before his angioedema diagnosis was made. No other surgical hist ory. MEDICATIONS ON ADMISSION: Include Claritin and ranitidine, which he says he takes prophylactically for his angioedema. He has just recently completed treatment for H pylori. FAMILY HISTORY: Significant for celiac disease in his sister and Crohn disease in his grandmother. No one else has hereditary angioedema. ALLERGIES: Penicillin. REVIEW OF SYSTEMS: CONSTITUTIONAL: He has been feeling poorly. He has been nauseous. He has not much appetite. HEENT: No headache. No visual disturbances. He does report lip swelling and tongu e edema. No difficulty with swallowing or breathing. No sore throat. No rhinorrhea. No epistaxis . PULMONARY: Denies shortness of breath or wheezing. CARDIOVASCULAR: No chest pain or palpitatio ns. No syncope. GI: He reports nausea, hematemesis of bright red blood on multiple occasions toda y, periumbilical abdominal pain, hematochezia described as maroon stool with clot. Reports chronic diarrhea episodically. MUSCULOSKELETAL: No joint pain or deformity. No myalgia. DERMATOLOGIC: H flynn and pruritus, predominantly on the extremities. NEUROLOGIC: No focal motor weakness, paresthe lan, or syncope. GENITOURINARY: No flank pain or hematuria. No dysuria. PSYCHIATRIC: No anxiet y, depression, or insomnia. PHYSICAL EXAMINATION: VITAL SIGNS: Blood pressure is 148/75. His heart rate is 90 and regular. R espirations are 16. Oxygenation is 95% on room air. Temperature is 36.7. GENERAL: Uncomfortable- appearing male in mild distress, mostly due to abdominal pain which seems to be coming in waves. He also seems a bit nauseated. HEENT: Normocephalic, atraumatic. Sclerae are anicteric. NECK: Sup ple. Oropharynx reveals some bloody secretions. The uvula is midline. No adenopathy. Neck is sup ple. Trachea is midline. PULMONARY: Clear to auscultation bilaterally. CARDIOVASCULAR: Regular rate and rhythm without murmur, rub, or gallop. GI: Abdomen is tender to palpation in the periumbi lical area. There is no distention or tympany. Bowel sounds seem normoactive. No bruit. No ascit es. No herniation. MUSCULOSKELETAL: Normal gait and station. There is swelling to the fingers an d small joints of the hands with erythema. DERMATOLOGIC: There are hives on the back of the hand w ith evidence of pruritus and itching-induced injury, mostly excoriations and red streaks. This exte nds up onto the arms as well. NEUROLOGIC: Alert to person, place, and time. Cranial nerves 2-12 a re normal. Motor is nonfocal. LABORATORY FINDINGS: Sodium 142, potassium 4.4, chloride 106, bicarbonate 24, BUN 15, creatinine 0. 8, glucose 96, total bilirubin 1.2 with a conjugated of 0.3, AST 41, ALT 60, alkaline phosphatase 49 , albumin 4.1. Lipase 84. INR 1.0. White blood count 5.9, hematocrit 46.1, platelets are 293. Imaging includes a CT scan of the abdomen and pelvis with angiography protocol. No evidence of juliann rial venous thrombosis or abnormality. The gallbladder and appendix are absent. Normal liver, sple en, and pancreas. The bowel is unremarkable without edema or swelling. No dilation to the small cihntan wel or colon. IMPRESSION: 1. Periumbilical abdominal pain. 2. Hematemesis. 3. Hematochezia. 4. Eosinophilic esophagitis. 5. Eosinophilic enteritis. 6. Hereditary angioedema. RECOMMENDATIONS: 1. Admit to hospital. 2. N.p.o. 3. IV fluid resuscitation. 4. Recombinant C1 esterase inhibitor will be administered at 20 units/kg (180 units total over 10 m inutes) to help treat what I believe is an underlying attack of hereditary angioedema, likely precip itated by stress and dehydration. [place], and I think thi s in conjunction with the stress of the move might have been the cause for the attack. 5. His vomiting and hematemesis may be due to a Cynthia-Reynoso tear in the setting of the eosinophil ic esophagitis but he will need an endoscopy, which we will arrange for in the morning tomorrow as h e seems stable at the current time from both a hemodynamic standpoint and his hematocrit is normal, although somewhat dehydrated. 6. IV fluid resuscitation. 7. Colonoscopy will be arranged tomorrow with his upper endoscopy due to the episodic chronic diarr hea, lower abdominal pain, and hematochezia. 8. Monitor H and H. 9. IV PPI continuous infusion. 10. Further recommendations to follow his endoscopic evaluation. /[id number]/MODL
[2017-01-13] MEDS: HYDROmorphONE/DILAUDID 1 MG/ML SYR IVP PRN ×7 (17:38→23:27)
[2017-01-13] MEDS: diphenhydrAMINE 25 MG CAP PO PRN ×2 (18:46→23:27)
[2017-01-13 19:04] LABS: HEMATOCRIT 44.5 % (40.0-51.0); HEMOGLOBIN 15.4 g/dL (13.7-17.5)
[2017-01-13] MEDS: LORazepam 2 MG/ML INJ IVP PRN (19:36)
[2017-01-13] MEDS: ONDANSETRON 4 MG/2 ML VIAL IVP PRN (19:45)
[2017-01-13] MEDS ORDERED: hydrOXYzine HCL 50 MG TAB PO ONE (20:57)
[2017-01-13 21:58] LABS: HEMATOCRIT 43.7 % (40.0-51.0); HEMOGLOBIN 14.7 g/dL (13.7-17.5)
[2017-01-13] MEDS: PANTOPRAZOLE SODIUM 40 MG in NS 100 ML IV SCH (22:02)
[2017-01-14] MEDS: HYDROmorphONE/DILAUDID 1 MG/ML SYR IVP PRN ×15 (00:33→18:13)
[2017-01-14] MEDS: ONDANSETRON 4 MG/2 ML VIAL IVP PRN ×2 (01:42→06:48)
[2017-01-14] MEDS: LORazepam 2 MG/ML INJ IVP PRN ×2 (03:39→11:22)
[2017-01-14] MEDS: diphenhydrAMINE 25 MG CAP PO PRN ×4 (04:32→16:54)
[2017-01-14 05:47] LABS: HEMOGLOBIN 13.7 g/dL (13.7-17.5); MEAN CELL VOLUME 84.6 fL (81.5-99.8); RED BLOOD CELL COUNT 4.73 10^6/uL (4.40-6.38)
[2017-01-14 05:48] LABS: % IMMATURE GRANULYOCYTES 0.1 % (0.0-1.1); ABSOLUTE IMMATURE GRANULOCYTES 0.01 10^3/uL (0.00-0.10); ADD DIFF? NO; ADD MORPH? NO; ADD SCAN? NO; ATYPICAL LYMPHOCYTE FLAG 0 (0-99); FRAGMENT RBC FLAG 0 (0-99); LEFT SHIFT FLG 0 (0-99); LIPEMIA HEMOLYSIS FLAG 90 (0-99); MEAN CELL HEMOGLOBIN CONCENTR. 34.3 g/dL (32.4-36.7); MEAN PLATELET VOLUME 10.6 fL (8.7-11.7); PLATELET CLUMPS FLAG 20 (0-99); PLATELET COUNT 250 10^3/uL (150-400); RED CELL DISTRIBUTION WIDTH 14.9 % (11.5-15.2)
[2017-01-14] MEDS: PROMETHAZINE HCL 25 MG/ML INJ IVP PRN ×2 (05:56→12:29)
[2017-01-14 06:59] LABS: ANION GAP 11 mEq/L (8-16); CALCIUM 8.2 mg/dL (8.5-10.4); CARBON DIOXIDE 22 mEq/l (22-31); CHLORIDE 105 mEq/L (97-110); CREATININE 0.9 mg/dL (0.7-1.3); GLOMERULAR FILTRATION RATE > 60; GLUCOSE 84 mg/dL (70-100); POTASSIUM 3.8 mEq/L (3.5-5.2); SODIUM 138 mEq/L (134-144)
[2017-01-14] MEDS ORDERED: PANTOPRAZOLE SODIUM 40 MG TAB PO SCH (09:00)
[2017-01-14] MEDS ORDERED: PARoxetine HCL 20 MG TAB PO SCH (09:00)
[2017-01-14] MEDS ORDERED: FAMOTIDINE 20 MG TAB PO SCH (09:00)
[2017-01-14] MEDS ORDERED: MULTIVITAMINS 1 EACH TAB PO SCH (09:00)
[2017-01-14] MEDS ORDERED: CETIRIZINE 10 MG TAB PO SCH (09:00)
[2017-01-14] MEDS: PANTOPRAZOLE SODIUM 40 MG in NS 100 ML IV SCH (09:06)
[2017-01-14] MEDS: ADDERALL 20 MG TAB PO SCH ×2 (09:07→12:29)
[2017-01-14] MEDS: ONDANSETRON DISINTEGRATING 4 MG TAB PO PRN ×2 (11:22→16:54)
[2017-01-14] MEDS ORDERED: LIDOCAINE 1% 5 ML SDV ONE (14:07)
[2017-01-14] MEDS ORDERED: MIDAZOLAM 2 MG/2 ML VIAL ONE (14:12)
[2017-01-14] MEDS ORDERED: DEXAMETHASONE 4 MG/ML VIAL ONE (14:14)
[2017-01-14] MEDS ORDERED: LIDOCAINE 2% 5 ML SDV ONE (14:14)
[2017-01-14] MEDS ORDERED: ONDANSETRON 4 MG/2 ML VIAL ONE (14:14)
[2017-01-14] MEDS ORDERED: fentaNYL 100 MCG/2 ML INJ ONE (14:15)
[2017-01-14] MEDS ORDERED: PROPOFOL 200 MG/20 ML VIAL ONE (14:15)
[2017-01-14] MEDS ORDERED: PROPOFOL/EMULSION 500 MG/50 ML BOTTLE IV ONE (14:38)
[2017-01-14] MEDS ORDERED: SUGAMMADEX SODIUM 200 MG/2 ML VIAL IVP ONE (15:11)
--- NOTE | 2017-01-14 15:31 | GPN ---
[f rep st] PROCEDURE NOTE PROCEDURE: Colonoscopy. PROCEDURE INDICATION: Hematochezia, abdominal pain. Consent for the colonoscopy procedure was obta ined from Mr. Muñoz after the risks and benefits of colonoscopy and anesthesia were discussed in detail. The risks of bleeding, colonic perforation, need for surgery, infection, cardiopulmonary co mplications or discomfort were reviewed in detail. Informed consent was obtained from the patient a fter questions were answered. PROCEDURE TOPPIECE CHOPPER: Dr. Maddox. ANESTHESIA: Dr. Breen. ENDOSCOPY STAFF: Corinna and Mary. MEDICATIONS: Monitored anesthesia care with propofol. COMPLICATIONS: None. ESTIMATED BLOOD LOSS: None. DESCRIPTION OF PROCEDURE: Mr. Muñoz was placed into the left lateral decubitus position. Anesth esia was administered. Once he was comfortable and stable, a digital rectal exam was performed. Th ere was a small perianal skin tag posteriorly overlying a small anal fissure that was palpable. The prostate was smooth without nodularity. No other perianal lesions. No other palpable rectal mass or lesion. The Olympus colonoscope was placed into the anal canal and advanced into the terminal il ium. Approximately 10 cm of ilium were evaluated. A retroflexed view of the rectum was taken. All mucosal surfaces were examined in their entirety. FINDINGS: The digital rectal exam revealed a small perianal skin tag and a healed anal fissure, and was otherwise unremarkable. The ilium was normal to approximately 10 cm with bilious fluid and no blood. The cecum was identified by the appendiceal orifice and the ileocecal valve and was healthy. The entire colon was without abnormality. A retroflexed view in the rectum revealed small perirec nguyen scars, likely from infrared coagulation or probably previous hemorrhoidal banding. There were s mall internal hemorrhoids, but none were actively bleeding. There was no blood seen throughout anyw here in the colon, and no abnormalities to explain hematochezia or abdominal pain. IMPRESSION: 1. Normal terminal ilium to 10 cm. 2. The entire colon is normal other than some small perirectal scars from prior hemorrhoidal treatm ent that are stable and normal in appearance for a post hemorrhoidal IRC or banding intervention. 3. Small perianal skin tag with underlying anal fissure. RECOMMENDATIONS: 1. Return to hospital pena. 2. Advance diet as tolerated. 3. Discharge to home when comfortable. 4. Screening colonoscopy at age 52. 5. Follow up in the GI office in 6-8 weeks. /[id number]/MODL
[2017-01-14 16:10] VITALS: O2SAT 95
[2017-01-14 17:05] VITALS: BP 118/94; PULSE 78; RESP 14; TEMP 98.2
--- NOTE | 2017-01-14 17:37 | PDDCSUM ---
Discharge Summary Discharge Summary: DISCHARGE SUMMARY FOLLOW-UP ITEMS: Obtain outside records from [facility] DATE OF ADMISSION: 01/13/17 DATE OF DISCHARGE: 01/14/17 DISCHARGE DIAGNOSES: 1. Possible acute upper gastrointestinal hemorrhage 2. Possible eosinophilic esophagitis 3. Reported hereditary angioedema CONSULTATIONS: Gastroenterology PROCEDURES / IMAGING: Upper endoscopy and colonoscopy without any evidence of bleeding CHIEF COMPLAINT: Reported hematemesis and hematochezia SUBJECTIVE: Patient reports that he is feeling well and feels safe for discharge home, no longer experiencing hematemesis PHYSICAL EXAM ON DISCHARGE: Systolic blood pressure is 120, heart rate 80, afebrile overnight, satting well on room air, bowel sounds are present, abdomen is soft nontender nondistended, completely benign LABS ON DISCHARGE: Hemoglobin 13.7, platelets [id number], white blood cell count 7000, creatinine 0.9, potassium 3.8, lactic acid 1.1 HOSPITAL COURSE BY PROBLEM: 1. Possible acute upper gastrointestinal hemorrhage. Patient reported hematemesis and hematochezia and is possible that he may have had either an upper airway/posterior pharynx bleed but is very unlikely that he was experiencing Cynthia-Reynoso tear given that his upper endoscopy was without any remarkable findings and he did not have any evidence of lower gastrointestinal hemorrhage. The patient reported significant bleeding but none was objectively seen or obtained. The patient reported his symptoms prior to his procedure showed is unlikely that it is directly from any procedure trauma. Have advised the patient that if he experiences any recurrence of symptoms that he should collect the bloody sample and bring it to the emergency department so that objective evidence can be obtained. 2. Possible eosinophilic esophagitis. This has been suspected in the outpatient setting although I do not believe that we have confirmatory evidence. We recommend that outpatient records be obtained from [facility] to confirm what workup has already been performed. 3. Reported hereditary angioedema. Patient reports that his abdominal pain and nausea symptoms are secondary to angioedema. We do not have any records to confirm this and I would recommend that these be obtained from [facility]. That being said, the patient reports that historically he has required several days of pain medication as well as antiemetics and his symptoms generally marco thereafter. I will provide him with a limited supply of hydrocodone and Zofran. DISCHARGE MEDICATIONS: Please see official discharge medication reconciliation sheet in chart , hydrocodone/acetaminophen 5/325, 20 tablets prescribed, Zofran 4 mg as needed 40 tablets prescribed DISCHARGE INSTRUCTIONS: Please follow up with Dr. Macias he has office within 1 week.
--- NOTE | 2017-01-14 19:06 | GPN ---
[f rep st] PROCEDURE NOTE PROCEDURE PERFORMED: Esophagogastroduodenoscopy. INDICATION: Hematemesis (multiple episodes of fresh bright red vomiting). Procedure consent was ob tained from the patient after the risks and benefits of endoscopy and anesthesia were discussed in d etail. All questions were answered, and informed consent was obtained. ANESTHESIA: Dr. Breen. ENDOSCOPY STAFF: Corinna and Maria Teresa. COMPLICATIONS: None. ESTIMATED BLOOD LOSS: None. DESCRIPTION OF PROCEDURE: The patient was intubated with general anesthesia for the endoscopy. Onc e the patient was comfortable, he was placed into the left lateral decubitus position. The oral bit e block was placed. The Olympus endoscope was placed into the oropharynx. There was some fresh blo od in the hypopharynx which was aspirated, and there was no ongoing bleeding. The source of the blo od within the hypopharynx could not clearly be identified. No laceration or injury was seen. The e ndotracheal tube was visualized to pass through the vocal cords. The tubular esophagus was intubate d under direct visualization, and ultimately the endoscope passed into the 2nd portion of the duoden um. FINDINGS: The esophagus exhibited longitudinal furrows along its length, consistent with a previous diagnosis of eosinophilic esophagitis. The gastroesophageal junction was at 37 cm and was regular without evidence of esophagitis, ulceration or Cynthia-Reynoso tear. There were no varices. The stom ach exhibited some retained food and bile and did not have any blood. A retroflexed view of the gas tric cardia was normal. In the antrum immediately above the pylorus was a small area of erythema wi th a little congestion, but no active erosions or ulcerations. The pyloric channel was normal. The duodenum is normal to the 2nd portion, with bile secretions and no blood. The duodenal mucosa was unremarkable. IMPRESSION: 1. Small amount of blood in the posterior pharynx without clear cause. There is no active bleeding from the hypopharynx. No injury was visualized. 2. Findings on the esophagus consistent with possible eosinophilic esophagitis, a diagnosis which h as already been previously established for the patient. The remaining esophagus was normal without evidence of bleeding. 3. The stomach exhibited some mild amount of retained food and bile and a little bit of erythema an d congestion at the pre-pyloric area, but no significant etiology of bleeding, and was grossly andi l. 4. The pyloric channel is normal. 5. The duodenum is normal to the 2nd portion, with the presence of bile in the duodenum. RECOMMENDATIONS: 1. Discontinue IV Protonix. 2. Advance diet as tolerated. 3. No source of bleeding discovered. I would continue the observation today and try to see if he c an be dispositioned out of the hospital tomorrow. 4. Discontinue serial hematocrits and check a morning CBC. 5. He will need a daily proton pump inhibitor as an outpatient, which can be started once he is mery erating a diet. 6. I would not pursue any further evaluation for the hematemesis at this time. /[id number]/MODL
== END 2017-01-14 18:21 | disposition home or self-care (01) | DRG 379 ==
LOC: F3E 16:59
PROVIDERS: ADMIT Internal Medicine; ATTEND Internal Medicine
PROC: 0DJD8ZZ Inspection of Lower Intestinal Tract, Via Natural or Artificial Opening Endoscopic (ICD-10-PCS; principal; 2017-01-14 13:15)
PROC: 0DJ08ZZ Inspection of Upper Intestinal Tract, Via Natural or Artificial Opening Endoscopic (ICD-10-PCS; principal; 2017-01-14 13:15)
DX: K92.2 Gastrointestinal hemorrhage, unspecified (principal); K20.0 Eosinophilic esophagitis; D84.1 Defects in the complement system; F90.9 Attention-deficit hyperactivity disorder, unspecified type
CPT/HCPCS: 96365; 96366; J0597; J1100; J1170; J1200; J2250; J2405; J2550; J2704; J3010; Q9967

== ENCOUNTER 2017-01-15 12:04 | Emergency (ER) | payer MEDICAID ==
[2017-01-15 12:14] VITALS: TEMP 98.2; O2SAT 97
--- NOTE | 2017-01-15 13:07 | EDPHY ---
H & P Stated Complaint: Abd pain,vomited blood;recent admit here w/dx +hpylori/PUD - Personal History Current Tetanus Diphtheria and Acellular Pertussis (TDAP): Yes - Medical/Surgical History Hx Asthma: Yes Hx Chronic Respiratory Disease: No Hx Diabetes: No Hx Cardiac Disease: No Hx Renal Disease: No Hx Cirrhosis: No Hx Alcoholism: No Hx HIV/AIDS: No Hx Splenectomy or Spleen Trauma: No Other PMH: eosiniphilic gastroenteritis, hereditary, angio edema, appy, taun. Hpylori, PUD - Social History Smoking Status: Current some day smoker Time Seen by Provider: 01/15/17 12:58 HPI/ROS: CHIEF COMPLAINT: Hematemesis,, epigastric pain HISTORY OF PRESENT ILLNESS: 36-year-old male with self-reported history of eosinophilic esophagitis , possible Cynthia-Reynoso tear, discharged from the hospital yesterday for same complaints, states that approximately 1 hour prior to arrival he had sudden onset of return of hematemesis, retching, epigastric abdominal pain. No radiation pain. No fever or chills. No melena or hematochezia. No urinary abnormality. REVIEW OF SYSTEMS: A ten point review of systems was performed and is negative with the exception of the items mentioned in the HPI PAST MEDICAL & SURGICAL HISTORY: Self-reported history of the eosinophilic esophagitis SOCIAL HISTORY: nonsmoker FAMILY HISTORY: No pertinent family history PHYSICAL EXAM (Prior to examination, patient consented to physical exam, hands were washed and my usual and customary physical exam procedures followed) 1) GENERAL: Well-developed, well-nourished, alert and oriented. He is retching and guarding his abdomen when I enter the room.appears anxious. For pending. 2) HEAD: Normocephalic, atraumatic 3) HEENT: Pupils equal, round, reactive to light bilaterally. Sclera anicteric. Nasopharynx, oropharynx, clear, no lesions. Moist mucous membranes 4) NECK: Full range of motion, no meningeal signs. 5) LUNGS: Clear auscultation bilaterally, no wheezes, no rhonchi, no retractions. 6) HEART: Regular rate and rhythm, no murmur, no heave, no gallop. 7) ABDOMEN: guarding epigastrium, tender to palpation epigastrium, negative McBurney's, negative Amado's, negative Rovsing's, negative peritoneal sign, 8) MUSCULOSKELETAL: Moving all extremities, no focal areas of tenderness, no obvious trauma. No peripheral edema or discoloration. 9) BACK: No CVA tenderness, no midline vertebral tenderness, no fluctuance, no step-off, no obvious trauma, no visual or palpable abnormality. 10) SKIN: No rash, no petechiae. 11) Psychiatric: Patient is oriented X 3, there is no agitation. DIFFERENTIAL DIAGNOSIS: no particular include but not limited to cyclic vomiting syndrome, cannabis hyperemesis syndrome, Cynthia-Reynoso tear, peptic ulcer disease (Francisco,Ariella Fabiola) Constitutional: Initial Vital Signs Temperature (C) 36.8 C 01/15/17 12:11 Heart Rate 94 01/15/17 12:11 Respiratory Rate 18 01/15/17 12:11 Blood Pressure 137/108 H 01/15/17 12:11 O2 Sat (%) 97 01/15/17 12:11 O2 Delivery Mode Room Air Allergies/Adverse Reactions: Penicillins Allergy (Intermediate, Verified 01/15/17 12:11) Hives Home Medications: Medication Instructions Recorded Amphet Asp and D/Amphet [Adderall 20 mg PO BID@0900,1230 12/16/16 20 mg (*)] Famotidine [Pepcid 20 MG (*)] 20 mg PO DAILY 12/16/16 Loratadine [Claritin 10 mg] 10 mg PO DAILY 12/16/16 PARoxetine HCL [Paxil 20mg (*)] 20 mg PO DAILY 12/16/16 Multivitamins [Multivitamin (*)] 1 each PO DAILY 12/17/16 Albuterol [Proventil Inhaler HFA 1 - 2 puffs IH Q4H PRN 01/13/17 (*)] Ondansetron Odt [Zofran Odt 4 mg 4 mg PO Q4 PRN 01/13/17 (*)] Pantoprazole Sodium [Protonix 40mg 40 mg PO DAILY 01/13/17 (*)] Sucralfate [Carafate Oral Liquid] 10 ml PO ACHS PRN 01/13/17 Hydrocodone/Acetaminophen 1 each PO Q4 PRN #20 tablet 01/14/17 [Hydrocodon-Acetaminophen 5-325] Ondansetron Odt [Zofran Odt 4 mg 4 mg PO Q4HRS PRN #40 tab 01/14/17 (*)] Medical Decision Making ED Course/Re-evaluation: 1:00 p.m.: Will review medical records. 2:30 p.m.: Re-evaluation, continued retching after Dilaudid, Benadryl, Ativan, Phenergan. The patient had a sample of he states is emesis and a basin that he brings with him and that was sampled. This was entered as a stool occult blood however should be noted for the record that this was from emesis not from stool. Discussed case Dr. Anamaria Herrera in the ER. 3:12 p.m.: Re-evaluation, continued retching. Complaining of continued pain. Further analgesia and antiemetic will be administered. 3:30 p.m.: Re-evaluation, is talking on the phone. Discussed indications for admission given that he was just discharged yesterday. He is feeling improvement. Offered admission however he feels a can be discharged and follow up with GI. His H&H are stable. He has been given proton pump inhibitor and Pepcid while in the ER He has sufficient supply of analgesia and antiemetic at home. Plan will be discharge. Doubt acute surgical abdominal pathology, doubt bowel obstruction, doubt pancreatitis, doubt acute cholecystitis. (Ariella Singh) The patient was evaluated and managed by the physician assistant professor of business. I have reviewed this chart and I agree with the findings and plan of care as documented , as indicated by my signature. I am the secondary supervising physician. ( Anamaria Herrera) - Data Points Laboratory Results: Laboratory Results 01/15/17 14:30 01/15/17 14:30 Medications Given: Discontinued Medications Diphenhydramine HCl (Benadryl Injection) 25 mg IVP EDNOW ONE Stop: 01/15/17 13:37 Last Admin: 01/15/17 14:00 Dose: 25 mg Hydromorphone HCl (Dilaudid) 1 mg IVP EDNOW ONE Stop: 01/15/17 13:37 Last Admin: 01/15/17 14:01 Dose: 1 mg Hydromorphone HCl (Dilaudid) 1 mg IVP EDNOW ONE Stop: 01/15/17 15:02 Last Admin: 01/15/17 15:13 Dose: 1 mg Sodium Chloride (Ns) 1,000 mls @ 0 mls/hr IV ONCE ONE PRN Reason: Wide Open Stop: 01/15/17 13:28 Last Admin: 01/15/17 13:28 Dose: 1,000 mls Famotidine/Sodium Chloride (Pepcid 20 Mg (Premix)) 50 mls @ 200 mls/hr IV EDNOW ONE Stop: 01/15/17 13:51 Last Admin: 01/15/17 14:01 Dose: 50 mls Pantoprazole Sodium 40 mg/ (Sodium Chloride) 100 mls @ 200 mls/hr IV EDNOW ONE Stop: 01/15/17 14:06 Last Admin: 01/15/17 14:02 Dose: 100 mls Lorazepam (Ativan Injection) 1 mg IVP EDNOW ONE Stop: 01/15/17 13:37 Last Admin: 01/15/17 14:01 Dose: 1 mg Departure - Departure Disposition: Home, Routine, Self-Care Clinical Impression: Abdominal pain Condition: Good Instructions: Acute Abdominal Pain (ED) Referrals: Kristan Macias MD [Medical Doctor] - 1-2 days without fail
[2017-01-15] MEDS ORDERED: NS 1,000 ML IV ONE (13:27)
[2017-01-15] MEDS ORDERED: LORazepam 2 MG/ML INJ IVP ONE (13:36)
[2017-01-15] MEDS ORDERED: HYDROmorphONE/DILAUDID 1 MG/ML SYR IVP ONE ×2 (13:36→15:01)
[2017-01-15] MEDS ORDERED: PANTOPRAZOLE SODIUM 40 MG in NS 100 ML IV ONE (13:37)
[2017-01-15] MEDS ORDERED: FAMOTIDINE 20 MG/NACL 50 ML IV ONE (13:37)
[2017-01-15] MEDS ORDERED: PROMETHAZINE HCL 25 MG/ML INJ ONE (14:56)
[2017-01-15] MEDS ORDERED: HYDROmorphONE/DILAUDID 1 MG/ML SYR ONE (15:02)
[2017-01-15 15:09] LABS: HEMATOCRIT 42.2 % (40.0-51.0); HEMOGLOBIN 14.2 g/dL (13.7-17.5); MEAN CELL HEMOGLOBIN 28.7 pg (27.9-34.1); MEAN CELL HEMOGLOBIN CONCENTR. 33.6 g/dL (32.4-36.7); MEAN CELL VOLUME 85.4 fL (81.5-99.8); RED BLOOD CELL COUNT 4.94 10^6/uL (4.40-6.38); RED CELL DISTRIBUTION WIDTH 14.9 % (11.5-15.2)
[2017-01-15 15:13] LABS: INR 0.99 (0.83-1.16)
[2017-01-15 15:24] LABS: ALANINE AMINOTRANSFERASE 65 IU/L (21-72); ALBUMIN 3.8 g/dL (3.5-5.0); ALKALINE PHOSPHATASE 51 IU/L (38-126); ANION GAP 9 mEq/L (8-16); ASPARTATE AMINOTRANSFERASE 35 IU/L (17-59); BILIRUBIN,TOTAL 0.7 mg/dL (0.1-1.4); BILIRUBIN-CONJUGATED 0.2 mg/dL (0.0-0.5); BILIRUBIN-UNCONJUGATED 0.5 mg/dL (0.0-1.1); CALCIUM 9.3 mg/dL (8.5-10.4); CARBON DIOXIDE 25 mEq/l (22-31); CHLORIDE 105 mEq/L (97-110); CREATININE 0.8 mg/dL (0.7-1.3); GLOMERULAR FILTRATION RATE > 60; GLUCOSE 105 mg/dL (70-100); SODIUM 139 mEq/L (134-144); TOTAL PROTEIN 6.6 g/dL (6.3-8.2)
[2017-01-15 15:42] VITALS: BP 128/67; PULSE 82; RESP 16
== END 2017-01-15 15:40 | disposition home or self-care (01) ==
DX: R10.13 Epigastric pain (principal); J45.909 Unspecified asthma, uncomplicated; F17.200 Nicotine dependence, unspecified, uncomplicated
CPT/HCPCS: 96365; J1170; J1200; J2550

== ENCOUNTER 2017-04-22 13:28 | Emergency (ER) | payer MEDICAID ==
[2017-04-22 13:33] VITALS: PULSE 84; RESP 18; TEMP 97.7; O2SAT 98
[2017-04-22 13:34] VITALS: BP 119/85
[2017-04-22] MEDS ORDERED: ONDANSETRON DISINTEGRATING 4 MG TAB PO ONE (13:34)
== END 2017-04-22 14:19 | disposition left against medical advice (07) ==
DX: Z53.21 Procedure and treatment not carried out due to patient leaving prior to being seen by health care provider (principal)

== ENCOUNTER 2017-04-24 17:48 | Emergency (ER) | payer MEDICAID ==
[2017-04-24 18:07] VITALS: BP 128/97; PULSE 96; RESP 18; TEMP 98.2; O2SAT 98
[2017-04-24] MEDS ORDERED: HYDROmorphONE/DILAUDID 1 MG/ML SYR ONE (18:40)
[2017-04-24] MEDS ORDERED: methylPREDNISolone SOD SUCC 125 MG/2 ML VIAL ONE (18:44)
[2017-04-24] MEDS ORDERED: PROMETHAZINE HCL 25 MG/ML INJ ONE (18:44)
[2017-04-24] MEDS ORDERED: PROMETHAZINE HCL 25 MG/ML INJ IVP ONE ×2 (18:46→18:51)
[2017-04-24] MEDS ORDERED: methylPREDNISolone SOD SUCC 125 MG/2 ML VIAL IVP ONE ×2 (18:46→18:51)
[2017-04-24] MEDS ORDERED: NS 1,000 ML IV ONE ×2 (18:46)
[2017-04-24] MEDS ORDERED: FAMOTIDINE 20 MG/NACL 50 ML IV ONE (18:46)
[2017-04-24] MEDS ORDERED: HYDROmorphONE/DILAUDID 1 MG/ML SYR IVP ONE (18:50)
--- NOTE | 2017-04-24 19:12 | EDPHY ---
H & P Stated Complaint: vommiting blood/[facility] Time Seen by Provider: 04/24/17 18:40 HPI/ROS: CHIEF COMPLAINT: Hematemesis HISTORY OF PRESENT ILLNESS: The patient is a 36-year-old man who comes to the emergency department complaining of hematemesis. 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 He reports to me that he was admitted here a month ago and had a transfusion of 4 units of blood. He states that these symptoms began 3 days ago. He was initially seen history day with [facility] and improved with Solu-Medrol and Benadryl and went home. They have since returned however. He has been afebrile. He complains of diffuse abdominal pain and cramping but no tenderness. He states that he occasionally has dark stool. REVIEW OF SYSTEMS: Constitutional: denies: chills, fever, recent illness, recent injury EENTM: denies: blurred vision, double vision, nose congestion Respiratory: denies: cough, shortness of breath Cardiac: denies: chest pain, irregular heart rate, lightheadedness, palpitations Gastrointestinal/Abdominal: denies: abdominal pain, diarrhea, nausea, vomiting, blood streaked stools Genitourinary: denies: dysuria, frequency, hematuria, pain Musculoskeletal: denies: joint pain, muscle pain Skin: denies: lesions, rash, jaundice, bruising Neurological: denies: headache, numbness, paresthesia, tingling, dizziness, weakness Hematologic/Lymphatic: denies: blood clots, easy bleeding, easy bruising Immunologic/allergic: denies: HIV/AIDS, transplant EXAM: GENERAL: Dry heaving, retching, HEAD: Atraumatic, normocephalic. EYES: Pupils equal round and reactive to light, extraocular movements intact, sclera anicteric, conjunctiva are normal. ENT: TMs normal, nares patent, oropharynx clear without exudates. Moist mucous membranes. NECK: Normal range of motion, supple without lymphadenopathy or JVD. LUNGS: Breath sounds clear to auscultation bilaterally and equal. No wheezes rales or rhonchi. HEART: Regular rate and rhythm without murmurs, rubs or gallops. ABDOMEN: Soft, nontender, normoactive bowel sounds. No guarding, no rebound. No masses appreciated. : Rectal performed. Minimal stool in vault. No melena. BACK: No CVA tenderness, no spinal tenderness, step-offs or deformities EXTREMITIES: Normal range of motion, no pitting or edema. No clubbing or cyanosis. NEUROLOGICAL: Cranial nerves II through XII grossly intact. Normal speech, normal gait. 5/5 strength, normal movement in all extremities, normal sensation PSYCH: Normal mood, normal affect. SKIN: Warm, dry, normal turgor, no visible rashes or lesions. Source: Patient Exam Limitations: No limitations - Personal History Current Tetanus/Diphtheria Vaccine: Yes - Medical/Surgical History Hx Asthma: Yes Hx Chronic Respiratory Disease: No Hx Diabetes: No Hx Cardiac Disease: No Hx Renal Disease: No Hx Cirrhosis: No Hx Alcoholism: No Hx HIV/AIDS: No Hx Splenectomy or Spleen Trauma: No Other PMH: eosiniphilic gastroenteritis, hereditary angio edema, appy, tuan. Hpylori, PUD - Family History Significant Family History: No pertinent family hx - Social History Smoking Status: Current some day smoker Alcohol Use: Occasionally Drug Use: None Constitutional: Initial Vital Signs Temperature (C) 36.8 C 04/24/17 18:04 Heart Rate 96 04/24/17 18:04 Respiratory Rate 18 04/24/17 18:04 Blood Pressure 128/97 H 04/24/17 18:04 O2 Sat (%) 98 04/24/17 18:04 O2 Delivery Mode Room Air Allergies/Adverse Reactions: Penicillins Allergy (Intermediate, Verified 01/15/17 12:11) Hives Home Medications: Medication Instructions Recorded Amphet Asp and D/Amphet [Adderall 20 mg PO BID@0900,1230 12/16/16 20 mg (*)] Famotidine [Pepcid 20 MG (*)] 20 mg PO DAILY 12/16/16 Loratadine [Claritin 10 mg] 10 mg PO DAILY 12/16/16 PARoxetine HCL [Paxil 20mg (*)] 20 mg PO DAILY 12/16/16 Multivitamins [Multivitamin (*)] 1 each PO DAILY 12/17/16 Albuterol [Proventil Inhaler HFA 1 - 2 puffs IH Q4H PRN 01/13/17 (*)] Ondansetron Odt [Zofran Odt 4 mg 4 mg PO Q4 PRN 01/13/17 (*)] Pantoprazole Sodium [Protonix 40mg 40 mg PO DAILY 01/13/17 (*)] Sucralfate [Carafate Oral Liquid] 10 ml PO ACHS PRN 01/13/17 Ondansetron Odt [Zofran Odt 4 mg 4 mg PO Q4HRS PRN #40 tab 01/14/17 (*)] SOLU-MEDROL 04/24/17 Medical Decision Making ED Course/Re-evaluation: I reviewed the patient's medical records. He was admitted here in November and again in December of this year with similar complaints. In November he had a relatively negative upper GI scope and was started on triple antibiotic therapy for possible peptic ulcer disease and positive H pylori. He is diagnosed with gastritis. Previous records from [place] were obtained and the the records state there was no pathologic diagnosis of eosinophilic gastritis. When he was admitted in December his upper GI was unremarkable. The patient is already had 2 doses of Dilaudid and I will treat with Phenergan, Solu-Medrol and Benadryl. We will attempt a to not treat him with any further with narcotics. 7:20 p.m. I spoke with the patient and his fiancee. We discussed alternatives. He ultimately accepted Toradol but declined other options. His fiancee was very angry with this. She was concerned because blood work had not been drawn yet. This is because nursing staff was unable to obtain peripheral IVs but did get an IJ that at 1st did not draw. He was being resuscitated first. She asked what the plan was for him which would be to try and control his pain and discharge of possible if his lab work was unremarkable and pain controlled. They became angry at this and decided to leave [facility]. Alternatives were discussed. They state that they would like to go to another hospital. Differential Diagnosis: Partial list of the Differential diagnosis considered include but were not limited to; eosinophilia esophagitis, gastritis, GI hemorrhage, peptic ulcer disease, alcoholism, narcotic abuse and although unlikely based on the history and physical exam, I also considered perforation, anxiety. - Data Points Medications Given: Discontinued Medications Diphenhydramine HCl (Benadryl Injection) 50 mg IVP EDNOW ONE Stop: 04/24/17 18:53 Last Admin: 04/24/17 18:54 Dose: 50 mg Diphenhydramine HCl (Benadryl Injection) 50 mg IVP EDNOW ONE Stop: 04/24/17 18:47 Last Admin: 04/24/17 19:03 Dose: 50 mg Hydromorphone HCl (Dilaudid) 1 mg IVP EDNOW ONE Stop: 04/24/17 18:51 Last Admin: 04/24/17 18:54 Dose: 1 mg Sodium Chloride (Ns) 1,000 mls @ 0 mls/hr IV ONCE ONE PRN Reason: Wide Open Stop: 04/24/17 18:47 Last Admin: 04/24/17 19:35 Dose: 1,000 mls Famotidine/Sodium Chloride (Pepcid 20 Mg (Premix)) 50 mls @ 200 mls/hr IV EDNOW ONE Stop: 04/24/17 19:00 Last Admin: 04/24/17 19:20 Dose: 50 mls Ketorolac Tromethamine (Toradol) 30 mg IVP EDNOW ONE Stop: 04/24/17 19:18 Last Admin: 04/24/17 19:20 Dose: 30 mg Methylprednisolone Sodium Succinate (Solu-Medrol) 125 mg IVP EDNOW ONE Stop: 04/24/17 18:52 Last Admin: 04/24/17 18:54 Dose: 125 mg Methylprednisolone Sodium Succinate (Solu-Medrol) 125 mg IVP EDNOW ONE Stop: 04/24/17 18:47 Last Admin: 04/24/17 19:04 Dose: Not Given Promethazine HCl (Phenergan) 25 mg IVP ONCE ONE Stop: 04/24/17 18:52 Last Admin: 04/24/17 18:55 Dose: 25 mg Promethazine HCl (Phenergan) 25 mg IVP EDNOW ONE Stop: 04/24/17 18:47 Last Admin: 04/24/17 19:04 Dose: Not Given Departure - Departure Disposition: Against Medical Advice Clinical Impression: Abdominal pain Qualifiers: Abdominal location: generalized Qualified Code(s): R10.84 - Generalized abdominal pain Vomiting Qualifiers: Vomiting type: unspecified Vomiting Intractability: non-intractable Nausea presence: with nausea Qualified Code(s): R11.2 - Nausea with vomiting, unspecified Condition: Fair Instructions: Acute Nausea and Vomiting (ED), Chronic Abdominal Pain (ED) Referrals: Kristan Macias MD [Medical Doctor] - As per Instructions
[2017-04-24] MEDS ORDERED: KETOROLAC 30 MG/1 ML SDV IVP ONE (19:17)
== END 2017-04-24 19:45 | disposition left against medical advice (07) ==
DX: R10.84 Generalized abdominal pain (principal); R11.2 Nausea with vomiting, unspecified; J45.909 Unspecified asthma, uncomplicated; F17.200 Nicotine dependence, unspecified, uncomplicated
CPT/HCPCS: 96374; J1170; J1200; J1885; J2550